=== PATIENT | female | born 2005 | race Two or more races ===

== ENCOUNTER 2023-07-24 19:02 | Emergency (ER) | payer MEDICAID, OTHER ==
[~2023-07-24] VITALS: Ht 154.9 cm; Wt 89.1 kg
[2023-07-24] MEDS: IBUPROFEN 800 MG TAB PO ONE (20:27)
[2023-07-25 00:03] LABS: COVID19 ANTIGEN SOFIA FIA NEGATIVE (NEGATIVE); Rapid Influenza A Negative (Negative); Rapid Influenza B Negative (Negative)
[2023-07-25 00:18] VITALS: BP 124/72; PULSE 126; RESP 18; O2SAT 98
[2023-07-25] MEDS ORDERED: ZOFR4T PO (00:30)
[2023-07-25] MEDS ORDERED: ACET500T58 PO (00:30)
[2023-07-25] MEDS ORDERED: AMOX875T4 PO (00:30)
[2023-07-25 00:31] VITALS: TEMP 98.3
[2023-07-25] MEDS: methylPREDNISolone SOD SUCC 125 MG/2 ML VL IM ONE (00:34)
[2023-07-25] MEDS: cefTRIAXone SOD 1,000 MG VL IM ONE (00:34)
== END 2023-07-25 00:47 | disposition home or self-care (01) ==
LOC: ER 19:02
DX: J03.90 Acute tonsillitis, unspecified (principal); Z20.822 Contact with and (suspected) exposure to COVID-19
CPT/HCPCS: 36415; 87426; 87804; 96372; 99284; J0696; J2930

== ENCOUNTER 2023-07-29 11:24 | Emergency (ER) | payer MEDICAID ==
[~2023-07-29] VITALS: Ht 154.9 cm; Wt 86.2 kg
[~2023-07-29 11:24] MED LIST: ACET500T58 PO; AMOX875T4 PO; ZOFR4T PO
[2023-07-29 11:58] VITALS: BP 131/85; PULSE 98; RESP 17; O2SAT 97
== END 2023-07-29 19:48 | disposition left against medical advice (07) ==
LOC: ER 11:24
DX: K13.79 Other lesions of oral mucosa (principal); R50.9 Fever, unspecified; Z53.21 Procedure and treatment not carried out due to patient leaving prior to being seen by health care provider